=== PATIENT | female | born 1950 | race Caucasian/White ===

== ENCOUNTER 2020-06-13 20:11 | Emergency (ER) | payer MEDICAID, MEDICARE ==
[~2020-06-13] VITALS: Ht 157.5 cm; Wt 86.6 kg
[~2020-06-13 20:11] MED LIST: ALPR1TAB2 PO; ASCO500C2 PO; ASCO500T56 PO; AZIT500T10 PO; CEFD300C37 PO; CETI10CA PO; DOCU-131 PO; GABA300C10 PO; LITH450T PO; MULT-257 PO; OMEP40CA3 PO; OXYC10TA6 PO; POLY17PO5 PO; PRED20TA PO; SIMV10TA PO; symbicort INH
--- NOTE | 2020-06-13 20:32 | NUR ---
PT BACK TO THIS RNS ROOM AT THIS TIME, PT REBEL, HAS A 0.5 INCH LAC ON RIGHT SIDE OF UPPER LIP, STATES DOG BIT HER. PT IS CRYING AND APPEARS SLIGHTLY FLUSTERED AT THIS TIME. PT GROSS NEURO INTACT, CMS INTACT, PLACED ON GURNEY, PROVIDED WARM BLANKETS FOR COMFORT. WCTM PT PLACED ON SPO2/BP/ECG MONITORING AT THIS TIME. WAITING FOR ERP EVAL.
[2020-06-13] MEDS ORDERED: LIDOCAINE-MPF 2% ,5ML SQ ONE (21:00)
[2020-06-13] MEDS ORDERED: DIPH,PERTUSS(ACELL),TET VAC/PF 0.5 ML IM-VACC ONE ×2 (21:00→21:06)
[2020-06-13] MEDS ORDERED: AMOXICILLIN/CLAV 875-125MG TABLET PO ONE (21:04)
[2020-06-13] MEDS ORDERED: LIDOCAINE-MPF 2% ,5ML ONE (21:05)
[2020-06-13] MEDS ORDERED: AMOXICILLIN/CLAV 875-125MG TABLET ONE (21:15)
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
--- NOTE | 2020-06-13 21:44 | NUR ---
PT MEDICATED PER MAR, TOLERATED WELL, LIP FLUSHED AND CLEANED, PT DENIES ADDITIONAL NEEDS AT THIS TIME. REBEL, WCTM.
[2020-06-13 22:28] VITALS: BP 116/59
--- NOTE | 2020-06-13 22:29 | NUR ---
SUTURES COMPLETED BY ARABELLA BARILLAS, PT TOLERATED WELL. AMBULATED TO AND FROM RESTROOM WITH A SMOOTH AND STEADY GAIT, NAD, DENIES ADDITIONAL NEEDS, WCTM. TO BE DC'D
== END 2020-06-13 23:18 | disposition home or self-care (01) ==
LOC: ED 22:45
DX: S01.551A Open bite of lip, initial encounter (principal); I25.2 Old myocardial infarction; W54.0XXA Bitten by dog, initial encounter; Y93.89 Activity, other specified; Y92.89 Other specified places as the place of occurrence of the external cause; Y99.8 Other external cause status
CPT/HCPCS: 12051; 90471; 90715; 93005; 99284

== ENCOUNTER 2020-10-11 12:15 | Emergency (ER) | payer MEDICARE ==
[~2020-10-11] VITALS: Ht 157.5 cm; Wt 79.8 kg
[2020-10-11] MEDS ORDERED: ASPIRIN 81 MG TABLET CHEW PO ONE (13:30)
[2020-10-11] MEDS ORDERED: ASPIRIN 81 MG TABLET CHEW ONE (13:39)
[2020-10-11 14:23] LABS: BASOPHILS % (AUTO) 0 % (0-1); EOSINOPHILS % (AUTO) 7 % (1-7); LYMPHOCYTES % (AUTO) 28 % (22-44); MEAN CORPUSCULAR HEMOGLOBIN 30.4 pg (27.0-34.8); MEAN CORPUSCULAR HGB CONC 32.9 g/dL (32.4-35.8); MEAN PLATELET VOLUME 7.7 fL (7.4-10.4); MONOCYTES % (AUTO) 9 % (2-9); NEUTROPHILS % (AUTO) 56 % (42-75); PLATELET COUNT 216 x10^3/uL (130-400); RED BLOOD COUNT 3.67 x10^6/uL (3.82-5.3)
[2020-10-11 14:29] LABS: MD NO
[2020-10-11 14:44] LABS: ALBUMIN 3.6 g/dL (3.4-5.0); ANION GAP 2 mmol/L (5-15); CALCIUM 9.8 mg/dL (8.5-10.1); CHLORIDE 110 mmol/L (98-107)
[2020-10-11 14:47] LABS: ALANINE AMINOTRANSFERASE 25 U/L (12-78); ALKALINE PHOSPHATASE 80 U/L (45-117); BILIRUBIN,TOTAL 0.2 mg/dL (0.2-1.0); CREATININE 0.84 mg/dL (0.55-1.02); TOTAL PROTEIN 6.6 g/dL (6.4-8.2)
--- NOTE | 2020-10-11 15:06 | NUR ---
PT OFF THE FLOOR TO CT
[2020-10-11] MEDS ORDERED: OMNIPAQUE 350 MG/ML, 100ML BOTTLE ONE (15:21)
[2020-10-11 16:07] VITALS: BP 127/73
--- NOTE | 2020-10-11 16:12 | NUR ---
MD ABDI IN ROOM
== END 2020-10-11 16:41 | disposition home or self-care (01) ==
LOC: ED 14:50
DX: H34.12 Central retinal artery occlusion, left eye (principal); R51.9 Headache, unspecified; I10 Essential (primary) hypertension; E78.5 Hyperlipidemia, unspecified
CPT/HCPCS: 36415; 70450; 70496; 70498; 80053; 85025; 93005; 99285; Q9967

== ENCOUNTER 2021-01-22 11:33 | Day surgery (SDC) | payer MEDICARE ==
[~2021-01-22] VITALS: Ht 157.5 cm; Wt 80.0 kg
[2021-01-22] MEDS ORDERED: LIDOCAINE 2%, 20ML ONE (12:05)
== END 2021-01-22 13:08 | disposition home or self-care (01) ==
LOC: CACL 11:33
PROVIDERS: ATTEND Internal Medicine Cardiovascular Disease
DX: I63.9 Cerebral infarction, unspecified (principal); I48.91 Unspecified atrial fibrillation; I10 Essential (primary) hypertension; K21.9 Gastro-esophageal reflux disease without esophagitis; G43.909 Migraine, unspecified, not intractable, without status migrainosus; J44.9 Chronic obstructive pulmonary disease, unspecified; Z79.84 Long term (current) use of oral hypoglycemic drugs; Z79.891 Long term (current) use of opiate analgesic; Z79.899 Other long term (current) drug therapy; Z86.010 Personal history of colon polyps; Z88.0 Allergy status to penicillin
CPT/HCPCS: 33285; C1764